=== PATIENT | male | born 1980 | race Two or more races ===

== ENCOUNTER 2020-08-08 21:44 | Emergency (ER) | payer MEDICARE, MEDICAID, SELFPAY ==
[2020-08-08 21:59] VITALS: BP 113/77; PULSE 88; RESP 18; TEMP 36.9; O2SAT 100; BMI 24.9
[2020-08-08 22:28] VITALS: BP 113/72; PULSE 71; RESP 18; TEMP 36.9; O2SAT 99
--- NOTE | 2020-08-08 23:19 | ED_ITS ---
HPI - Male Genitourinary General Chief complaint: Urogenital-Male Stated complaint: Groin pain Time Seen by Provider: 08/08/20 23:19 Source: patient Mode of arrival: ambulatory History of Present Illness HPI Narrative: 40-year-old male without significant past medical history who presents with 1 month of worsening penile swelling and pain and the inability to retract the foreskin over the glans penis, but states that this has not affected his ability to urinate however he states he has been unable to obtain erection. He denies any testicular pain, swelling, or penile discharge. In addition, he denies any fevers, chills, nausea, vomiting, diarrhea. Related Data Previous Rx's Medication Instructions Recorded amoxicillin-pot clavulanate 1 tab PO Q12H 7 Days #14 tab 08/09/20 [Augmentin] Allergies Allergy/AdvReac Type Severity Reaction Status Date / Time No Known Allergies Allergy Verified 08/08/20 23:45 Review of Systems Review of Systems: Pertinent positives and negatives as stated in HPI 10 point review of systems is otherwise negative. PMFSH Past Medical History Source: nursing notes reviewed Social History Social History Alcohol intake: unknown Smoking Status: Unknown if ever smoked Use of substances other than those prescribed or required for medical reasons: Unknown Advance Directives: No Advance Directives Information Provided: Yes Physical Exam Vital Signs: Vital Signs: Last Vital Signs Temp 98.5 F 08/08/20 22:28 Pulse 71 08/08/20 22:28 Resp 18 08/08/20 22:28 BP 113/72 08/08/20 22:28 Pulse Ox 99 08/08/20 22:28 Body Mass Index 24.9 VITAL SIGNS: Reviewed. GENERAL: Well developed, well nourished, in no acute distress. HEAD: Normocephalic/atraumatic EYES: PERRLA, EOMI EARS: Ext canals without abnormality NOSE: Nares patent bilateral OROPHARYNX: no oral lesions noted, posterior pharynx clear NECK: Supple, no adenopathy LUNGS: Normal breath sounds. No adventitious sounds or accessory muscle use. SpO2<99> CARDIOVASCULAR: Regular rate and rhythm without noted murmurs ABDOMEN: Soft, non-tender, non-distended with bowel sounds. 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 NEUROLOGIC: Alert and oriented x 4. Course Course Course Narrative: 40-year-old male with history and clinical presentation consistent with balanoposthitis. Discharge Plan Discharge Clinical Impression: Balanoposthitis Patient Disposition: Home, Self-Care Instructions: Balanitis (ED), Sitz Bath (DC) Additional Instructions: 1. Sitz baths, 2 to 3 times a day, while inflammation persists. 2. Clean between foreskin and the head of your penis with a Q-tip and rinse with water until you achieved gradual resolution of the infection. 3. Once the infection has resolved regular bathing of the area and water (no soap) should be sufficient. 4. Please follow-up with your primary care provider in the next 1-2 days for re-evaluation. Prescriptions: New amoxicillin-pot clavulanate [Augmentin] 875-125 mg tablet 1 tab PO Q12H 7 Days Qty: 14 RF: 0 Referrals: Crissy Guerrero MD [Primary Care Provider] - 2 days (Re-evaluation for balanitis.)
[2020-08-09] MEDS: Amoxicillin/Potassium Clav 875 MG TABLET PO (00:16)
== END 2020-08-09 00:33 | disposition home or self-care (01) ==
PROVIDERS: Emergency Provider Student in an Organized Health Care Education/Training Program; PCP Internal Medicine
DX: N47.6 Balanoposthitis (principal)
CPT/HCPCS: 99283; 99284

== ENCOUNTER 2023-09-02 10:06 | Outpatient (REF) | payer OTHER, SELFPAY ==
[2023-09-02 12:23] LABS: Anion Gap 11 (12-20); Blood Urea Nitrogen 14 mg/dL (9-16); Calcium 9.8 mg/dL (8.4-10.2); Carbon Dioxide 29 mmol/L (22-29); Chloride 104 mmol/L (96-108); Cholesterol 162 mg/dL (<200); Estimated Glomerular Filt Rate > 60; Glucose Random 94 mg/dL (60-115); HDL Cholesterol 52 mg/dL (>40); LDL Cholesterol Calculated 93 mg/dL (<100); Potassium 4.9 mmol/L (3.3-5.1); Sodium 139 mmol/L (135-145); Triglycerides 88 mg/dL (<150)
[2023-09-02 12:45] LABS: ~Hepatitis B Surface Antibody REACTIVE (Nonreactive)
[2023-09-02 12:47] LABS: Vitamin D 25-OH Total 45.3 ng/mL (>30)
[2023-09-02 12:51] LABS: Reflex LDLD? No
[2023-09-05 00:33] LABS: TS Negative Control Passed; TS Panel A 1; TS Panel B 0; TS Positive Control Passed; TSpotTB Negative (Negative)
== END 2023-09-02 10:07 | disposition home or self-care (01) ==
LOC: HO.HHCL 10:06
PROVIDERS: Visit Provider Internal Medicine
DX: Z00.00 Encounter for general adult medical examination without abnormal findings (principal); R03.0 Elevated blood-pressure reading, without diagnosis of hypertension
CPT/HCPCS: 36415; 80048; 80061; 82306; 86481; 86706

== ENCOUNTER 2024-06-07 12:12 | Outpatient (REF) | payer OTHER, SELFPAY ==
[2024-06-07 13:50] LABS: Appearance Urine Clear; Color Urine Dark Yellow; Glucose Urine UA Negative (Negative); Leukocyte Esterase Urine Trace (Negative); Nitrite Urine Negative (Negative); Specific Gravity - Urine >= 1.030 (1.005-1.025); UMIC TRIGGER UACC YES; Urine Blood Negative (Negative); Urine Ketones Trace mg/dL (Negative); Urine Protein Trace mg/dL (Neg-Trace)
[2024-06-07 13:58] LABS: Bacteria Urine None Seen (None Seen); Hyaline Casts Urine 0-2 /LPF (0-2); RBC Urine 0-2 /HPF (0-2); Squamous Epithelial Cell Urine 0-2 /HPF (0-2); UACC Culture Trigger YES
[2024-06-07 14:42] LABS: Prostate Specific Antigen 1.37 ng/mL (<0.05-4.0)
--- OUTSIDE RECORDS SUMMARY | 2024-06-07 14:44 | XMS_ITS | Encounter Summary ---
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 Phone Crissy Guerrero MD Primary Care Provider + Reason for Visit * Reason Comments Follow-up Encounter Details Date Type Department Care Team ([facility] st Contact Info) Description 06/07/2024 11:15 AM EDT Office Visit [facility] [address], [place] [phone] Crissy Guerrero MD [address], [place] [phone] Anxiety (Primary Dx); Intellectual functioning disability; Encounter for immunization Social History Tobacco Use Types Packs/Day Years Used Date Smoking Tobacco: Never Smokeless Tobacco: Never Tobacco Cessation:Counseling Given: Not Answered Alcohol Use Standard Drinks/Week Comments Never 0 (1 standard drink = 0.6 oz pur e alcohol) Depression Answer Date Recorded Patient Health Questionnaire-9 Score 0 09/02/2023 Patient Health Questionnaire-9 Score 0 09/02/2023 Last PHQ-9: Questionnaire Data Not on file 0 09/02/2023 Housing Stability Answer Date Recorded What is your housing situation today? I have may kline 09/02/[address] you li ve. Do you have problems with any of the following? Not on file 09/02/2023 Food Insecurity Answer Date Recorded Within the past 12 months, y ou worried that your food would run out before you got money to buy more: Not on file 2023 Within the past 12 months,th e food you bought just didn't last and you didn't have enough money to get more: Sometimes True 09/02/2023 Transportation Answer Date Recorded In the past 12 months, has l ack of transportation kept you from medical appts, meetings, work or from getting things needed for daily living? No 09/02/2023 Utilities Answer Date Recorded In the past 12 months, has t he electric, gas, oil or water company threatened to shut off services in your home? Yes 09/02/2023 Depression Answer Date Recorded Patient Health Questionnaire-2 Score 0 09/02/2023 Sex and Gender Information Value Date Recorded Sex Assigned at Male 01/19/2022 10:18 AM EDT Legal Sex Male 10:18 AM EDT Gender Identity Male 01/19/2022 10:18 AM EDT Sexual Orientation Straight 01/19/2022 10 :18 AM EDT documented as of this encounter Last Filed Vital Signs Vital Sign Reading Time Taken Comments Blood Pressure 115/73 06/07/2024 10:49 AM EDT Pulse 68 06/07/2024 10:49 AM EDT Temperature 36.1 ??C (96.9 ??F) 06/07/2024 10:49 AM E DT Respiratory Rate 20 06/07/2024 10:49 AM EDT Oxygen Saturation 100% 06/07/2024 10:49 AM EDT Inhaled Oxygen Concentration - - Weight 68.7 kg (151 lb 6 oz) 06/07/2024 10:49 AM EDT Height 167.6 cm (5' 6 ) 06/07/2024 10:49 AM EDT Body Mass Index 24.43 06/07/2024 10:49 AM EDT documented in this encounter Progress Notes * Crissy Guerrero MD - 06/07/2024 11:15 AM EDT SUBJECTIVE: Osman Rodriguez is a 44 y.o. year old male who presents for follow up labs/BP. Denies recent illness, injury, or hospitalization. Here with his dad. Patient is compliant with medications, he says to be feeling well. He does not have a job at this time or attend any program. Patient stays at home all day, usually in his room watching TV. [facility] Exam was more than 3 years ago. Labs on 09/02/2023 are within normal limits. He did not complete the UA, it is pending. At the moment he denies having any urinary symptoms. Acute Concerns: Social History Social History Narrative Lives with his father and sister + step mom. He doesn't have a partner. He spends the day playing sports, helping with house chores. Patient Active Problem List Diagnosis Aggressive behavior Allergic conjunctivitis Anxiety Grief Intellectual functioning disability Not up to date with scheduled immunizations Vitamin D deficiency Encounter for preventive health examination Family History Problem Relation Name Age of Onset Diabetes Father Review of Systems Constitutional: Negative for chills, fatigue and fever. HENT: Negative for congestion, ear pain, nosebleeds, rhinorrhea, sinus pressure, sore throat and trouble swallowing. Eyes: Negative for pain and discharge. Respiratory: Negative for cough, chest tightness and shortness of breath. Cardiovascular: Negative for chest pain, palpitations and leg swelling. Gastrointestinal: Negative for blood in stool, constipation, diarrhea and nausea. Endocrine: Negative for polydipsia and polyuria. Genitourinary: Negative for difficulty urinating, frequency and genital sores. Musculoskeletal: Negative for back pain and neck pain. Skin: Negative for rash. Allergic/Immunologic: Negative for environmental allergies. Neurological: Negative for dizziness, seizures, weakness, light-headedness and headaches. Hematological: Negative for adenopathy. Psychiatric/Behavioral: Negative for agitation, behavioral problems, self-injury and suicidal ideas. OBJECTIVE: Vitals: 06/07/24 1049 BP: 115/73 Pulse: 68 Resp: 20 Temp: 96.9 ??F (36.1 ??C) SpO2: 100% Physical Exam Constitutional: Appearance: Normal appearance. HENT: Right Ear: Tympanic membrane and ear canal normal. Left Ear: Tympanic membrane and ear canal normal. Mouth/Throat: Mouth: Mucous membranes are moist. Pharynx: No oropharyngeal exudate or posterior oropharyngeal erythema. Eyes: Pupils: Pupils are equal, round, and reactive to light. Cardiovascular: Rate and Rhythm: Normal rate and regular rhythm. Heart sounds: No murmur heard. Pulmonary: Breath sounds: Normal breath sounds. No wheezing. Abdominal: General: Bowel sounds are normal. Palpations: Abdomen is soft. Tenderness: There is no abdominal tenderness. Musculoskeletal: General: No tenderness. Normal range of motion. Cervical back: Normal range of motion. No tenderness. Skin: General: Skin is warm. Neurological: General: No focal deficit present. Mental Status: He is alert and oriented to person, place, and time. Psychiatric: Mood and Affect: Mood normal. Problem List Items Addressed This Visit Anxiety - Primary He is doing well, feels safe at home. Continue Celexa, Clonidine and Trazodone for now. FU with Psychiatrist on 06/28/2024. Agreed to have Influenza immunization today. Intellectual functioning disability Completed High School, he is bilingual Turk[place] and [place]. I advised him to pursue vocational training with IEP or engage on adult programs. I gave his father information regarding health care proxy, power of senior trial attorney or guardianship if applicable. His father is his college tutor under the [employer]. Other Visit Diagnoses Encounter for immunization Relevant Orders FLU VACCINE TRIVALENT (Fluarix) 6 mo + (Completed) Follow Up: Current Outpatient Medications on File Prior to Visit Medication Sig Dispense Refill albuterol (ProAir HFA) 108 (90 Base) MCG/ACT inhaler Inhale 2 puffs every 4 (four) hours if needed for wheezing or shortness of breath. 18 g 1 citalopram (CeleXA) 10 MG tablet Take 1 tablet (10 mg) by mouth Once per day. 90 tablet 0 cloNIDine (Catapres) 0.1 MG tablet Take 1 tablet (0.1 mg) by mouth if needed in the morning, at noon, and at bedtime (anxiety). Take 0.1 mg by mouth if needed in the morning, at noon, and at bedtime.90 tablet 0 traZODone (Desyrel) 100 MG tablet Take 1 tablet (100 mg) by mouth at bedtime. 90 tablet 0 No current facility-administered medications on file prior to visit. I, Ximena Steele, am serving as a scribe to document services personally performed by Dr. Crissy Guerrero, based on the patient's response to questions by provider and provider's statements to me. documented in this encounter Miscellaneous Notes * Assessment & Plan Note - Ximena Steele MA - 06/07/2024 1:29 PM EDT Associated Problem(s): Intellectual functioning disability Completed High School, he is bilingual [place] and [place]. I advised him to pursue vocational training with IEP or engage on adult programs. I gave his father information regarding health care proxy, power of senior trial attorney or guardianship if applicable. His father is his college tutor under the [employer]. * Assessment & Plan Note - Ximena Steele MA - 06/07/2024 1:27 PM EDT Associated Problem(s): Anxiety He is doing well, feels safe at home. Continue Celexa, Clonidine and Trazodone for now. FU with Psychiatrist on 06/28/2024. Agreed to have Influenza immunization today. 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
--- OUTSIDE RECORDS SUMMARY | 2024-06-07 14:44 | XMS_ITS | Clinical Summary ---
Author Organization [employer] Address [address] [facility] [address] [place] [address] Care Team Providers Care Household Appliance Installer Name Role Phone Crissy Guerrero MD Primary Care Provider + Allergies No known active allergies Medications * This document contains information received from the source organization and may not represent a complete record from that organization. albuterol (ProAir HFA) 108 (90 Base) MCG/ACT inhaler Inhale 2 puffs every 4 (four) hours if needed for wheezing or shortness of breath. 18 g 1 04/10/19 25 Active citalopram (CeleXA) 10 MG tablet Take 1 tablet (10 mg) by mouth Once per day. 90 tablet 05/24/19 25 Active cloNIDine (Catapres) 0.1 MG tablet Take 1 tablet (0.1 mg) by mouth if needed in the morning, at noon, and at bedtime (anxiety). Take 0.1 mg by mouth if needed in the morning, at noon, and at bedtime. 90 tablet 05/24/19 25 Active traZODone (Desyrel) 100 MG tablet Take 1 tablet (100 mg) by mouth at bedtime. 90 tablet 05/24/19 25 Active citalopram (CeleXA) 10 MG tablet Take 1 tablet (10 mg) by mouth Once per day. 90 tablet 04/10/19 25 025 Discontinued(Re order (will not trigger notification to Pharmacy)) cloNIDine (Catapres) 0.1 MG tablet Take 1 tablet (0.1 mg) by mouth if needed in the morning, at noon, and at bedtime (anxiety). Take 0.1 mg by mouth if needed in the morning, at noon, and at bedtime. 90 tablet 04/10/19 25 025 Discontinued(Re order (will not trigger notification to Pharmacy)) traZODone (Desyrel) 100 MG tablet Take 1 tablet (100 mg) by mouth at bedtime. 90 tablet 04/13/19 25 025 Discontinued(Re order (will not trigger notification to Pharmacy)) Active Problems Problem Noted Date Diagnosed Date Encounter for preventive health examination 08/20 Assessment & Plan (10/12/2023 1:26 PM EDT): Discussed with patient re increase fresh fruit and vegetable intake. Counseled re moderate exercise as tolerated, up to 20min/d Patient feels safe at home. Eye exam: UTD, next one due on 2024 CRC screen: Due on 2026 Lipids/FBS:Overdue, TBO and fu next appt. Vaccinations:Order Hep B titers, will fu Fall Izs. Dental visit :Overdue, needs routine dental exam and prophylaxis to prevent further morbidity and mortality. His father will rs appt. Vitamin D deficiency 10/16/2022 Aggressive behavior 04/20/2022 Allergic conjunctivitis 04/20/2022 Anxiety 04/20/2022 Assessment & Plan (06/07/2024 1:27 PM EDT): He is doing well, feels safe at home. Continue Celexa, Clonidine and Trazodone for now. FU with Psychiatrist on 06/28/2024. Agreed to have Influenza immunization today. Assessment & Plan (04/22/2022 10:02 AM EST): Seems to be doing better now on under psychiatric care. Continue FU by Ambrocio Lyman every 3 months and counselor every month. Recommended to reach out to MH provider to a different adult day program, or some vocational activity. He feels safe at home and is able to reach out for safety. Grief 04/20/2022 Not up to date with scheduled immunizations 03/24 Intellectual functioning disability 09/24/2016 Assessment & Plan (06/07/2024 1:29 PM EDT): Completed High School, he is bilingual Croatian and Lao. I advised him to pursue vocational training with IEP or engage on adult programs. I gave his father information regarding health care proxy, power of bankruptcy attorney or guardianship if applicable. His father is his tutoring assistant under the [employer]. Assessment & Plan (10/12/2023 1:07 PM EDT): HS graduate with IP, he's bilingual E/Lao, functions at home, no behavioral issues. Advised to be engaged on an adult day program Assessment & Plan (04/22/2022 10:04 AM EST): Highschool with an IP and is doing well. NO behavioral issues at this time, able to live with his family. He is able to make his own decisions. I gave information to both parents and son about health care proxy and FU in 6 months for PE. Resolved Problems Problem Noted Date Diagnosed Date Resolved Date Elevated blood pressure reading 07/21/2018 06/07/2024 Assessment & Plan (10/12/2023 1:06 PM EDT): ?Stage 1? Has Fam Hx HTN Counseled re low salt diet/increase moderate physical activity. Check home BP BIW and prn CP/CARTER/JOHNSON Non smoking patient. Order labs and fu with me in 2-3m Assessment & Plan (04/22/2022 10:03 AM EST): Repeat today is wnl. Pt will check BP at home once per week. FU with me for PE and lab.s Encounters * This document contains information received from the source organization and may not represent a complete record from that organization. Date Type Department Care Team Description 06/07/2024 11:15 AM EDT Office Visit [facility] [address] [place] [phone] Crissy Guerrero MD Anxiety (Primary Dx); Intellectual functioning disability; Encounter for immunization 06/07/2024 Travel 05/30/2024 Patient Outreach [facility] [address] [place] [phone] Crissy Guerrero MD Pre-visit Planning ((Unable to reach for PVP screening, LVM)) 04/13/2024 Telephone [facility] [address] [place] [address] Crissy Guerrero MD Med Refill 03/09/2024 Telephone [facility] [address] [place] [address] Crissy Guerrero MD April recall from Last 3 Months Immunizations Name Administration Dates Next Due Hep B, adult 04/22/2022 Influenza Injectable Quadriv alant Preservative Free IIV4 MDCK 01/16/2021,12/12/2019 Influenza injectable quadriv alent preservative free 04/22/2022,01/16/2019,01/17/2018 Influenza, Split (incl. fawn fied surface antigen) 12/21/2012 Influenza, seasonal, injecta ble, preservative free 06/07/2024 Tdap 06/03/2017 Family History Medical History Relation Name Comments Diabetes Father Relation Name Status Comments Father Social History Tobacco Use Types Packs/Day Years [...] is your housing situation today? I have mayjose kline 09/02/[address] you [...] Orientation Straight 01/19/2022 10 :18 AM EDT Last Filed Vital Signs Vital Sign Reading [...] Mass Index 24.43 06/07/2024 10:49 AM EDT Plan of Treatment Health Maintenance Due Date Last Done Comments CT Colonography 1979 Colonoscopy 1979 Colorectal Cancer Screening 1979 FIT DNA/Cologuard 1979 FIT 1979 FOBT 1979 SDOH Screening 1979 Sigmoidoscopy 1979 Alcohol/Substance Use Screening 1991 Family Planning (PISQ) 1994 Hepatitis C Screening 1997 Hepatitis B Vaccines (2 of 3 - 19+ 3-dose series) 05/20/2022 04/22/2022 COVID-19 Vaccine ( season) 2023 05/21/2021, 10/02/2020, 09/11/2020 Depression Screening 09/01/2024 09/02/2023, 09/02/19 24 Tobacco Screening 06/07/2025 06/07/2024 DTaP/Tdap/Td Vaccines (2 - Td or Tdap) 06/04/2027 06/03/2017 Lipid Panel 09/01/2028 09/02/2023 Zoster Vaccines (1 of 2) 2029 RSV Patients and Patients Aged 60 years or older (1 - 1-dose 75+ series) 2054 HIV Screening Completed 08/05/2021 Influenza Vaccine Completed 06/07/2024, , 01/16/2021, Additional history exists HIB Vaccines Aged Out No longer eligi ble based on patient's age to complete this topic HPV Vaccines Aged Out No longer eligi ble based on patient's age to complete this topic Hepatitis A Vaccines Aged Out No long er eligible based on patient's age to complete this topic IPV Vaccines Aged Out No longer eligi ble based on patient's age to complete this topic Meningococcal Vaccine Aged Out No dana daxa eligible based on patient's age to complete this topic Pneumococcal Vaccine: Pediatrics (0 to 5 Years) and At-Risk Patients (6 to 49) Years) Aged Out No longer eligible based on patient's age to complete this topic RSV under 20 months Aged Out No longe r eligible based on patient's age to complete this topic Rotavirus Vaccines Aged Out No longer eligible based on patient's age to complete this topic Procedures Procedure Name Priority Date/Time Associated Diagnosis Comments URINALYSIS, COMPLETE, WITH REFLEX TO CULTURE Routine 06/07/2024 12:17 PM EDT Lower urinary tract symptoms (LUTS) PSA, TOTAL Routine 06/07/2024 12:16 PM EDT Lower urinary tract symptoms (LUTS) LIPID PANEL WITH REFLEX TO DIRECT LDL Routine 09/02/2023 10:08 AM EDT Elevated blood pressure reading HIV 1/2 ANTIGEN/ANTIBODY, FOURTH GENERATION W/RFL Routine 08/05/2021 11:12 AM EDT from Last 3 Months or Most Recently Relevant to Health Maintenance Results * (ABNORMAL) Urinalysis, Complete, with Reflex to Culture (06/07/2024 12:17 PM EDT) Color Urine Dark Yellow [facility] Appearance Urine Clear [facility] PH 5.0 5.0 - 9.0 [facility] Glucose Urine UA Negative Negative mg/dL [facility] Urine Blood Negative Negative [facility] Specific [place] - Urine >=1.030(H) 1.005 - 1.025 [facility] Urine Protein Trace Neg-Trace mg/dL [facility] Urine Ketones Trace Negative mg/dL [facility] Nitrite Urine Negative Negative [facility] Leukocyte Esterase Urine Trace(A) Negative [facility] RBC Urine 0-2 0 - 2 /HPF [facility] Urine WBC 6-10(A) 0 - 5 /HPF [facility] Urine Squamous Epithelial Cell 0-2 0 - 2 /HPF [facility] Urine Bacteria None Seen None Seen [facility] Hyaline Casts, Urine 0-2 0 - 2 /LPF [facility] Urine 06/07/2024 12:1 7 PM EDT 06/07/2024 1:08 PM EDT Narrative [facility] - 06/07/2024 1:58 PM EDT Urine, Clean Catch us Crissy Guerrero MD LAB URINE ORDERABLES Fin al Result Performing Organization Address [facility] Co de Phone Number [facility] [address] [place] [phone] * PSA,Total (06/07/2024 12:16 PM EDT) Prostate Specific Antigen 1.37 <0.05 - 4.0 ng/mL [facility] Comment:PSA methodology: Abb leah Schwartz i ChemiluminescentMicroparticle Immunoassay (CMIA) Blood Venous blood specimen / Unknown 06/07/2024 12:16 PM EDT 06/07/2024 1:50 PM EDT us Crissy Guerrero MD LAB BLOOD ORDERABLES Fin al Result Performing Organization Address [facility]/ZIP Co de Phone Number [facility] [address] [place] [phone] * Lipid Panel with Reflex to Direct LDL (09/02/2023 10:08 AM EDT) Triglycerides 88 <150 mg/dL [facility] Comment:Desirable Triglyceri de: less than 150 mg/dLBorderline High Triglyceride 150-199 mg/dLHigh Triglyceride: 200-499 mg/dLVery High Triglyceride: greater than or equal to 5OO mg/dL Cholesterol 162 <200 mg/dL [facility] Comment:Desirable Cholestero l: less than 200 mg/dLBorderline High Cholesterol: 200-239 mg/dLHigh Cholesterol: greater than 239 mg/dL LDL Cholesterol Calculated 93 <100 mg/dL [facility] Comment:Desirable LDL: less than 100 mg/dLNear Optimal/Above Optimal LDL: 110- 129 mg/dLBorderline High LDL: 130-159 mg/dLHigh LDL: 160-189 mg/dLVery High LDL: greater than or equal to 190 mg/dL HDL Cholesterol 52 >40 mg/dL [facility] Comment:Desirable HDL: great er than 40 mg/dL Note: This HDL assay may give artificially low results in patients with liver disease. Blood 09/02/2023 10:0 8 AM EDT 09/02/2023 11:41 AM EDT us Crissy Guerrero MD LAB BLOOD ORDERABLES Fin al Result [facility] [address] [place] [phone] * HIV 1/2 ANTIGEN/ANTIBODY,FOURTH GENERATION W/RFL (08/05/2021 11:12 AM EDT) HIV-1/2 ANTIGEN AND ANTIBODIES, 4TH GENERATION W/ REFLEX NON-REACT MUMTAZ NON-REACT MUMTAZ [facility] Comment: HIV-1 antigen and HIV-1/HIV-2 antibodies were not detected. There is no laboratory evidence of HIV infection. ?? PLEASE NOTE: This information has been disclosed to you from records whose confidentiality may be protected by state law. ??If your state requires such protection, then the state law prohibits you from making any further disclosure of the information without the specific written consent of the person to whom it pertains, or as otherwise permitted by law. A general authorization for the release of medical or other information is NOT sufficient for this purpose. ? For additional information please refer to http://Push IO.Mendor/faq/LFZ857 (This link is being provided for informational/ educational purposes only.) ? The performance of this assay has not been clinically validated in patients less than 2 years old. ?? 08/05/2021 11:1 2 AM EDT Crissy Guerrero MD LAB BLOOD ORDERABLES Fin al Result Performing Organization Address City/State/[facility] Co de Phone Number [facility] [address] from Last 3 Months or Most Recently Relevant to Health Maintenance Insurance [facility] Care Teams Household Appliance Installer Relationship Specialty Start Date End Date Crissy Guerrero MD [address] [place] [phone] PCP - General Family Medicine 08/04/16
--- OUTSIDE RECORDS SUMMARY | 2024-06-07 14:44 | XMS_ITS | Encounter Summary ---
Author Organization [employer] Address [address] [facility] 7[address] [place] [address] Care Team Providers Care Design Engineer Products Name Role Phone Crissy Guerrero MD Primary Care Provider + Encounter Details Date Type Department Care Team (Latest Contact Info) Description 06/07/2024 Travel Social History Tobacco Use Types Packs/Day Years Used Date Smoking Tobacco: Never Smokeless Tobacco: Never Alcohol Use Standard Drinks/Week Comments Never 0 [...] AM EDT documented as of this encounter Plan of Treatment Not on file documented as of this encounter Visit Diagnoses Not on filedocumented in this encounter Additional Health Concerns Assessment Noted Time PHQ-9 Depression Total Score: 0 09/02/19 24 10:06 AM EDT documented as of this encounter Care Teams Design Engineer Products Relationship Specialty Start Date End Date Crissy Guerrero MD [address] [place] [phone] PCP - General Family Medicine 08/04/16 documented as of this encounter
--- OUTSIDE RECORDS SUMMARY | 2024-06-07 14:44 | XMS_ITS | Encounter Summary ---
Author Organization [employer] Address [address] [facility] 7[address] [place] [address] Care Team Providers Care Continuity Person Name Role Phone Crissy Guerrero MD Primary Care Provider + Reason for Visit * Reason Onset Date Comments Med Refill 10/13/2023 Encounter Details Date Type Department Care Team (Late st Contact Info) Description 10/13/2023 Telephone [facility] [address] [place] [phone] Crissy Guerrero MD [address] [place], [place] [phone] Med Refill Social History Tobacco Use Types Packs/Day Years [...] AM EDT documented as of this encounter Miscellaneous Notes * Telephone Encounter - Khalida Medrano LPN - 10/13/2023 3:26 PM EDT Medication isn't prescribed by PCP. * Telephone Encounter - Armand Neumann - 10/13/2023 12:50 PM EDT TC from pt requesting medication refill. Medications needing refill: cloNIDine (Catapres) 0.1 MG tablet To be sent to: [facility] Father states pt has not taken medication in over 3 days. documented in this encounter Plan of Treatment Not on file documented as of this encounter Visit Diagnoses Not on filedocumented in this encounter Additional Health Concerns Assessment Noted Time PHQ-9 Depression Total Score: 0 09/02/19 24 10:06 AM EDT documented as of this encounter Care Teams Continuity Person Relationship Specialty Start Date End Date Crissy Guerrero MD [address] [place] [phone] PCP - General Family Medicine 08/04/16 documented as of this encounter
--- OUTSIDE RECORDS SUMMARY | 2024-06-07 14:44 | XMS_ITS | Encounter Summary ---
Author Organization [employer] Address [address] [facility] 7[address] [place] [address] Care Team Providers Care Employee Development Manager Name Role Phone Crissy Guerrero MD Primary Care Provider + Reason for Visit * Reason Comments Pre-visit Planning (Unable to reach for PVP screening, LVM) Encounter Details Date Type Department Care Team ([facility] Contact Info) Description 05/30/2024 Patient Outreach [facility] [address] [place], [place] [phone] Crissy Guerrero MD [address] [place], [place] [phone] Pre-visit Planning ((Unable to reach for PVP screening, LVM)) Social History Tobacco Use Types Packs/Day Years [...] AM EDT documented as of this encounter Progress Notes * Marian Vásquez - 05/30/2024 11:40 AM EDT JAHAIRA Fonseca. Placed outbound call to patient to complete pre-visit planning. No answer at this time. Patient name and were not confirmed. CC left voicemail requesting return call. Direct contact information provided. documented in this encounter Plan of Treatment Not on file documented as of this encounter Visit Diagnoses Not on filedocumented in this encounter Additional Health Concerns Assessment Noted Time PHQ-9 Depression Total Score: 0 09/02/19 24 10:06 AM EDT documented as of this encounter Care Teams Employee Development Manager Relationship Specialty Start Date End Date Crissy Guerrero MD [address] [place] [phone] PCP - General Family Medicine 08/04/16 documented as of this encounter
[2024-06-07 17:52] LABS: CT PCR NOT DETECTED (Not Detect.); NG PCR NOT DETECTED (Not Detect.)
== END 2024-06-07 12:13 | disposition home or self-care (01) ==
LOC: HO.HHCL 12:12
PROVIDERS: Visit Provider Internal Medicine
DX: Z12.5 Encounter for screening for malignant neoplasm of prostate (principal); R39.9 Unspecified symptoms and signs involving the genitourinary system; Z20.2 Contact with and (suspected) exposure to infections with a predominantly sexual mode of transmission
CPT/HCPCS: 36415; 81001; 84153; 87086; 87491; 87591